=== PATIENT | female | born 1975 | race Two or more races ===

== ENCOUNTER 2016-05-25 20:36 | Emergency (ER) | payer MEDICAID ==
[2016-05-25] MEDS ORDERED: ACETAMINOPHEN 325 MG TABLET PO ONE (23:07)
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
[2016-05-25 23:47] VITALS: BP 146/94
== END 2016-05-25 23:45 | disposition home or self-care (01) ==
LOC: ER 20:36
DX: F43.9 Reaction to severe stress, unspecified (principal); F41.0 Panic disorder [episodic paroxysmal anxiety]
CPT/HCPCS: 99283; J3490

== ENCOUNTER 2016-08-07 13:06 | Emergency (ER) | payer MEDICAID, OTHER ==
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
[2016-08-07 15:34] VITALS: BP 127/75
--- NOTE | 2016-08-08 14:03 | XCELERA REPORT ---
[address] [address] Lower Extremity Venous Evaluation Name: EMERALD CUELLAR Age: 41 yrs Gender: Female : 1975 Patient Status: Emergency Patient Location: ER Study Date: 08/07/2016 02:15 PM Procedure: Color flow and duplex imaging of the veins of the left lower extremity as well as the right Common Femoral vein. Reason For Study: left leg pain Ordering Physician: CHU COYNE Performed By: Sultana Perez Right Sided Venous Evaluation The right common femoral vein is fully compressible. Spontaneous and phasic flow is present in the right common femoral vein. Left Sided Venous Evaluation Normal vessel filling wall to wall, compression and augmentation as well as Colour flow down to the infrageniculate veins. Critical Findings Called in to the ER. Interpretation Summary No duplex evidence of DVT or obstruction in the left lower extremity nor in the right Common Femoral vein. : CHU COYNE > David Montana
== END 2016-08-07 15:34 | disposition home or self-care (01) ==
LOC: ER 13:06
DX: E11.8 Type 2 diabetes mellitus with unspecified complications (principal); M79.89 Other specified soft tissue disorders
CPT/HCPCS: 93971; 99283

== ENCOUNTER 2017-11-18 09:42 | Emergency (ER) | payer MEDICAID ==
[2017-11-18] MEDS ORDERED: HYDROCODONE/ACETAMINOPHEN 5-325 MG TABLET PO ONE (10:10)
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
[2017-11-18 12:13] VITALS: BP 152/97
== END 2017-11-18 11:50 | disposition home or self-care (01) ==
LOC: ER 09:42
DX: S56.911A Strain of unspecified muscles, fascia and tendons at forearm level, right arm, initial encounter (principal); X50.0XXA Overexertion from strenuous movement or load, initial encounter; Y93.E2 Activity, laundry; Y92.009 Unspecified place in unspecified non-institutional (private) residence as the place of occurrence of the external cause; I10 Essential (primary) hypertension; E11.9 Type 2 diabetes mellitus without complications; E66.9 Obesity, unspecified; Z88.6 Allergy status to analgesic agent; Z98.51 Tubal ligation status
CPT/HCPCS: 99283

== ENCOUNTER → 2019-05-01 | Outpatient (CLI) | payer MEDICAID ==
[2019-05-01 10:01] LABS: C-REACTIVE PROTEIN 20.1 mg/L (<10.0)
[2019-05-02 15:35] LABS: LYME DISEASE IGM AB <0.80 index (0.00-0.79)
[2019-05-02 16:36] LABS: CYTOPLASMIC (C-ANCA) <1:20 titer (Neg:<1:20)
[2019-05-03 07:38] LABS: ATYPICAL PANCA <1:20 titer (Neg:<1:20); CYCLIC CITRUL PEPTIDE IGG/A AB 12 units (0-19)
== END ==
LOC: LAB 08:54
PROVIDERS: ATTEND Orthopaedic Surgery
DX: M17.11 Unilateral primary osteoarthritis, right knee (principal)
CPT/HCPCS: 36415; 82306; 85652; 86021; 86038; 86140; 86200; 86431; 86617; 86618; 86812